=== PATIENT | female | born 1995 | race Caucasian/White ===

== ENCOUNTER 2023-05-15 09:51 | Outpatient (AMB) | payer OTHER, SELFPAY ==
[2023-05-15 11:04] VITALS: BP 102/60; PULSE 50; TEMP 36.6; O2SAT 96; BMI 20.2
--- NOTE | 2023-05-15 11:04 | MHC.OFFWIV ---
Intake Vital Signs 05/15/23 11:04 Height 5 ft 1 in Weight 48.534 kg BMI 20.2 BP 102/60 Blood Pressure Location Rt brachial Position Sitting Pulse 50 Pulse Source Pulse Oximeter Temp 97.8 F Temp Source Temporal Artery Scan Pulse Oximetry (%) 96 Oxygen Delivery Method Room Air Intake Visit Reasons: EST/chest congestion(lobby) Intake Note: pt is here for c/o chest congestion and ear pain Patient Tobacco Use Status: Never used Tobacco Allergies No Known Allergies [No Known Allergies*] Allergy (Verified 05/15/23 11:06) Do you need a note to return to daycare/school/sports/work: Yes HPI HPI Comments History of Present Illness Details 1114 27 year old female presents with congestion, fatigue, maliase and ear pain X 2 days. Girlfriend is COVID + at this time. No cp, sobm nausea, vomiting, headache, vision changes, dizziness, weakness PE- benign Likely viral, flu, influenza. No signs of OM/OE, ruptured tm, mastoiditis Plan- viral test Discussed antiviral tx w/ patient if + not interested at this time. Educated patient on diagnosis and treatment plan, answered all question, patient verbalizes understanding. At this time patient will be discharged home, advised to return with new or worsening symptoms. Educated on worrisome signs and symptoms and when to return. At this time I feel comfortable discharge home. [facility] Social History Patient Tobacco Use Status: Never used Tobacco Review of Systems Const Details: Constitutional : No Weight loss, No Fever, No Chills, No Fatigue, No Malaise ENT/Mouth : No sore throat, No Rhinorrhea Eyes: No Eye Pain, No Swelling, No Redness Cardiovascular : No Chest Pain, No SOB, No Dyspnea on Exertion, No Orthopnea, No Edema, No Palpitations Respiratory : No Cough, No Sputum, No Wheezing Gastrointestinal : No Nausea, No Vomiting, No Diarrhea, No Constipation, No abdominal Pain, No Hematochezia, No Melena Genitourinary : No Dysuria, No Urinary Frequency, No Hematuria, Musculoskeletal : No joint pain, No Myalgias, No Joint Swelling Skin : No Skin Lesions, No rash Neuro : No Weakness, No Numbness, No Dizziness, No Headache Psych : No Anxiety/Panic, No Depression All other systems reviewed and are negative All systems reviewed & are unremarkable except as noted in HPI and below Physical Exam Vital Signs: Last Vital Signs Temp 97.8 F 05/15/23 11:04 Pulse 50 05/15/23 11:04 BP 102/60 05/15/23 11:04 Pulse Ox 96 05/15/23 11:04 Oxygen Delivery Method Room Air 05/15/23 11:04 BMI result Body Mass Index 20.2 vss Appearance: Alert.? Oriented X3.? No acute distress.? Head: Normocephalic, atraumatic, no step-offs or deformities Eyes: Pupils equal, round and reactive to light.? Neck: Normal inspection.? Neck supple.? CVS: Normal heart rate and rhythm.? Pulses normal.? Respiratory: No respiratory distress.? Breath sounds normal.? Abdomen: Soft and nontender.? Skin: Skin warm and dry.? Normal skin color.? Normal skin turgor.? Extremities: No lower extremity edema.? No calf ttp. 5/5 strength to bilateral upper and lower extremities Neuro: Oriented X 3.? No motor deficit.? No sensory deficit. CN 2-12 intact Assessment & Plan Assessment & Plan (1) Viral illness: Code(s): B34.9 - Viral infection, unspecified Plan Take your medications as prescribed. If you were prescribed antibiotics today, it is important that you take your medication to their entirety, do not skip any doses, do not finish them early. Follow-up with your primary care provider this week. Return to the emergency department with new or worsening symptoms. Such as fevers, chills, chest pain, shortness of breath, nausea, vomiting, dizziness, headache, vision changes, lethargy In case of emergency call 911 Orders: Orders BinaxNOW Covid-19 Ag Today B34.9 - Viral infection, unspecified Coding Level of Care Code Est Pt Level 3 (81701) Diagnoses Viral illness B34.9
== END 2023-05-15 11:47 | disposition home or self-care (01) ==
PROVIDERS: Visit Provider Physician Assistant
DX: B34.9 Viral infection, unspecified (principal)
CPT/HCPCS: 99213

== ENCOUNTER 2023-05-15 11:19 | Outpatient (REF) | payer OTHER, SELFPAY ==
[2023-05-15 11:38] LABS: Binax Internal Control QC Valid; Binax Now Covid-19 Ag Positive (Negative); Binax Performed by: PAULP
== END 2023-05-15 11:20 | disposition home or self-care (01) ==
LOC: HO.HMGCLDS 11:19
PROVIDERS: Visit Provider Physician Assistant
DX: Z11.52 Encounter for screening for COVID-19 (principal)
CPT/HCPCS: 87811; C9803

== ENCOUNTER 2025-06-18 09:33 | Emergency (ER) | payer OTHER, SELFPAY ==
--- NOTE | ~2025-06-18 | CT_ITS ---
CLINICAL HISTORY: flank pain, hx of kidney stones CT abdomen and pelvis without IV contrast. COMPARISON: None provided. FINDINGS: Partially visualized lung bases are unremarkable. Normal gallbladder. Non-contrasted appearance of the liver, spleen, adrenal glands, and pancreas are unremarkable. Multiple nonobstructing right renal calculi measuring up to 4 mm. Mild right hydroureter. At the right UVJ there is a 3 mm ureteral calculus. Multiple nonobstructing left renal calculi measuring up to 3 mm. No left-sided hydronephrosis. No left hydroureter. No left ureteral calculus identified. Normal appendix. Mild colonic stool burden. No bowel obstruction. No mesenteric or retroperitoneal lymphadenopathy. Normal abdominal aorta. Normal appearance of the urinary bladder. No adnexal mass. Small amount of free fluid present within the posterior cul-de-sac. No acute fracture or suspicious bone lesion. IMPRESSION: 1. Right UVJ 3 mm calculus causes mild right hydroureter. 2. Additional nonobstructing renal calculi present bilaterally measuring up to 4 mm on the right. 3. Small amount of free fluid present within the posterior cul-de-sac, likely physiologic. This document has been electronically signed by: Tal Rosales MD on 06/18/2025 14:10:56
[2025-06-18 09:44] VITALS: BP 121/58; PULSE 68; RESP 16; TEMP 36.8; O2SAT 100; BMI 22.7
--- NOTE | 2025-06-18 10:03 | ED_ITS ---
HPI - General Adult General Chief complaint: Abdominal Pain Stated complaint: kidney stones Time Seen by Provider: 06/18/25 10:03 Source: patient Mode of arrival: ambulatory Limitations: no limitations History of Present Illness ED Provider: Chela Francisco PA-C HPI narrative: Patient is a 29 year old female with a history of kidney stones presenting to the emergency department today with right sided flank pain, right lower abdominal pain, and nausea. Patient states that starting today she began to have right sided kidney and abdominal pain with nausea but not vomiting. Patient states this feels similar to a previous kidney stone she has had. Patient denies any other complaints at this time. Onset (ago): hour(s) Relieving factors: none Exacerbating factors: none Associated symptoms: nausea/vomiting Treatments prior to arrival: none Related Data Previous Rx's ?Medication ?Instructions ?Recorded naproxen 500 mg tablet 500 mg PO BID 7 days #14 tab s 06/18/25 prednisone 10 mg tablet 10 mg PO DAILY 4 days #4 tab s 06/18/25 tamsulosin 0.4 mg capsule 0.4 mg PO DAILY #7 caps 05/30 07/23 Allergies Allergy/AdvReac Type Severity Reaction Status Date / Time No Known Allergies (No Known Allergy Verified 06/18/25 09:45 Allergies*) Review of Systems 2 Constitutional: Constitutional: Reports as per HPI Eyes: Eyes: Reports as per HPI ENT: Reports as per HPI Cardiovascular: Cardiovascular: Reports as per HPI Respiratory: Respiratory: Reports as per HPI Gastrointestinal: Gastrointestinal: Reports as per HPI Genitourinary: Genitourinary: Reports as per HPI Musculoskeletal: Musculoskeletal: Reports as per HPI Integumentary/Breasts: Skin/Breast: Reports as per HPI Neurologic: Reports as per HPI Psychiatric: Psychiatric: Reports as per HPI Endocrine: Endocrine: Reports as per HPI Hematologic/Lymphatic: Hematologic/Lymphatic: Reports as per HPI Allergic/Immunologic: Allergic/Immunologic: Reports as per HPI [facility] Past Medical History Attestation statement: The following information was validated with the patient. Source: old records reviewed and nursing notes reviewed Social History Social History Patient Tobacco Use Status: Never used Tobacco Smoked in Last 30 Days: No Use of substances other than those prescribed or required for medical reasons: No Advance Directives: No Advance Directives Information Provided: No Do you have a plan to hurt others: No Plan Patient : No Physical Exam ED Vital Signs: Vital Signs - 24 hr 06/18/25 09:44 06/18/25 11:28 06/18/25 14:08 Temperature 98.2 F 98.2 F 98.2 F Pulse Rate 68 73 73 Respiratory Rate 16 16 16 Blood Pressure 121/58 L 112/65 112/65 Pulse Oximetry 100 100 100 Oxygen Delivery Method Room Air Room Air Room Air BMI result Body Mass Index 22.7 Const General: cooperative, no acute distress, alert and awake Nutritional Appearance: well nourished Orientation/consciousness: patient oriented x3 HENMT Head: Yes normal to inspection and Yes atraumatic Ears: hearing grossly normal bilaterally and external ears normal General nose exam: Normal external nose present, no nasal discharge noted and no epistaxis Face and sinus: Yes normal facial exam, No abrasion and No laceration Mouth: Normal oral and palatal mucosa present, no drooling and no muffled voice Eyes General: appearance normal, both eyes and all related structures Periorbital: periorbital findings normal Eyelids: Yes eyelids normal Conjunctivae: conjunctivae normal Pupils: Equal, round and reactive pupils present EOM: EOMs intact bilaterally Neck Neck: Yes normal visual inspection and Yes full ROM Resp Effort & Inspection: normal respiratory effort and able to speak in complete sentences Neuro General: patient oriented x3, moves all extremities and CN's II-XI intact bilaterally Cranial nerves: Yes Equal, round and reactive pupils present Cognition (Neuro): normal cognition Extrem General: Yes normal to inspection, Yes full ROM and Yes capillary refill normal Psych Appearance: grossly normal Mental Status: mental status grossly normal Affect: normal affect Attitude: cooperative Thought process: Normal thought process present Thought content: Normal thought content present Insight: Good insight present (Psych) Medications Administered Discontinued Medications Generic Name Dose Route Start Last Admin Trade Name Freq PRN Reason Stop Dose Admin Sodium Chloride 1,000 mls @ 999 mls/hr 06/18/25 11:15 06/18/25 12:49 Ns IV 06/18/25 12:15 Infused .Q1H1M GALLO Infusion Ketorolac Tromethamine 15 mg 06/18/25 11:13 06/18/25 11:26 Ketorolac Tromethamine 15 Mg/Ml Vial IVPUSH 06/18/25 11:14 15 mg ONCE ONE Administration Ondansetron HCl 4 mg 06/18/25 11:13 06/18/25 11:26 Ondansetron Hcl 4 Mg/2 Ml Vial IVPUSH 06/18/25 11:14 4 mg ONCE ONE Administration Medical Decision Making Medical Decision Making [facility] Narrative: Patient is a 29 year old female with a history of kidney stones presenting to the emergency department today with right sided flank pain, right lower abdominal pain, and nausea. Patient's physical exam was as noted in the physical exam portion of this note. Patient's blood work was unremarkable. Patient's urine showed no acute process. Patient's CT abd/pelvis showed a right UVJ 3mm calculus with mild right hydroureter. Patient received IV fluids and Toradol which, upon re-evaluation, she stated it helped her symptoms significantly. I explained my physical exam findings as well as all test results to the patient. I answered all questions asked by the patient. Patient was able to tolerate PO intake while in the department - she was eating an outside brought large soup with rice. I stressed the importance of the patient taking her medication as directed (either prescribed or as the over the counter packaging recommends). I stressed the importance of the patient following up with her primary care provider and the urology team. I stressed the importance of the patient returning to the emergency department immediately if her symptoms were to worsen or if she were to develop any dizziness, shortness of breath, difficulty breathing, chest pain, blurry vision, loss of vision, nausea, vomiting, abdominal pain, fever, chills, back pain, or any other complaints. Patient verbalized agreement and understanding with this treatment plan and discharge. Differential Diagnosis Differential Diagnoses: The differential diagnosis associated with the presentation includes Kidney stone Admission/Observation Consideration of admission/observation: Escalation of care including admission/observation considered Patient would have been admitted to the hospital had her work up had any findings where hospital admission was appropriate and her clinical presentation warranted hospital admission. Lab Data [facility] Lab Attestation statement: I reviewed the patient's lab results. My interpretation of these results are in the MDM Rationale portion of this note. 06/18/25 10:00 06/18/25 10:00 Labs: Lab Results 06/18/25 Range/Units 10:00 WBC 6.3 (4.8-10.8) X10*3/uL RBC 4.34 (4.20-5.50) X10*6/uL Hgb 13.2 (12.0-16.0) g/dl Hct 40.2 (37.0-47.0) % MCV 92.6 (80.0-98.0) fL MCH 30.4 (27.0-33.0) pg MCHC 32.8 (31.0-35.0) g/dl RDW 12.1 (11.0-16.0) % Plt Count 212 (160-400) X10*3/uL MPV 12.1 (9.4-12.3) fL Immature Gran % (Auto) 0.5 H (0.0-0.4) % Neut % (Auto) 59.4 (45-73) % Lymph % (Auto) 22.9 (20-40) % [place] % (Auto) 8.9 (2-11) % Eos % (Auto) 7.3 H (0-4) % Baso % (Auto) 1.0 (0-2) % Lymph # (Auto) 1.4 (1.2-4.9) X10*3/uL [place] # (Auto) 0.6 (0.1-1.2) X10*3/uL Eos # (Auto) 0.5 H (0.0-0.4) X10*3/uL Baso # (Auto) 0.1 (0.0-0.2) X10*3/uL Abs Immat Gran (auto) 0.03 (0.00-0.03) X10*3/uL Absolute Neuts (auto) 3.7 (2.0-8.3) x10*3/uL Absolute Nucleated RBC 0.000 (0.0-0.012) X10*3/uL Nucleated RBC % (auto) 0.0 (0.0-0.2) /100WBC Sodium 136 (135-145) mmol/L Potassium 4.0 (3.3-5.1) mmol/L Chloride 109 H (96-108) mmol/L Carbon Dioxide 21 L (22-29) mmol/L Anion Gap 10 L (12-20) BUN 12 (9-16) mg/dL Creatinine 0.82 (0.5-1.4) mg/dL Estim Creat Clear Calc 77.7 Estimated GFR > 60 Random Glucose 97 (60-115) mg/dL Calcium 8.9 (8.4-10.2) mg/dL Total Bilirubin 0.4 (0.0-1.0) mg/dL AST 20 (5-31) U/L ALT 16 (0-31) U/L Alkaline Phosphatase 61 (39-117) U/L Total Protein 7.0 (6.5-8.0) g/dL Albumin 4.5 (3.5-5.0) g/dL Beta HCG, Quant < 2 mIU/mL Urine Color Yellow Urine Appearance Clear Urine pH 6.5 (5.0-9.0) Ur Specific [place] 1.010 (1.005-1.025) Urine Protein Negative (Neg-Trace) mg/dL Urine Glucose (UA) Negative (Negative) mg/dL Urine Ketones Negative (Negative) mg/dL Urine Blood Small (1+) H (Negative) Urine Nitrite Negative (Negative) Ur Leukocyte Esterase Negative (Negative) Urine RBC 0-2 (0-2) /HPF Urine WBC 0-5 (0-5) /HPF Ur Squamous Epith Cells 0-2 (0-2) /HPF Urine Bacteria None Seen (None Seen) Hyaline Casts 0-2 (0-2) /LPF Independent Interpretation I performed an independent interpretation of an: CT Scan Interpretation: My interpretation is in agreement with the radiologist's impression of this imaging study as written below. Report Number: [id number]: Total DLP = 341.00 mGy-cm Reason for Exam: flank pain, hx of kidney stones CLINICAL HISTORY: flank pain, hx of kidney stones CT abdomen and pelvis without IV contrast. COMPARISON: None provided. FINDINGS: Partially visualized lung bases are unremarkable. Normal gallbladder. Non-contrasted appearance of the liver, spleen, adrenal glands, and pancreas are unremarkable. Multiple nonobstructing right renal calculi measuring up to 4 mm. Mild right hydroureter. At the right UVJ there is a 3 mm ureteral calculus. Multiple nonobstructing left renal calculi measuring up to 3 mm. No left-sided hydronephrosis. No left hydroureter. No left ureteral calculus identified. Normal appendix. Mild colonic stool burden. No bowel obstruction. No mesenteric or retroperitoneal lymphadenopathy. Normal abdominal aorta. Normal appearance of the urinary bladder. No adnexal mass. Small amount of free fluid present within the posterior cul-de-sac. No acute fracture or suspicious bone lesion. IMPRESSION: 1. Right UVJ 3 mm calculus causes mild right hydroureter. 2. Additional nonobstructing renal calculi present bilaterally measuring up to 4 mm on the right. 3. Small amount of free fluid present within the posterior cul-de-sac, likely physiologic. This document has been electronically signed by: Tal Rosales MD on 06/18/2025 14:10:56 Dictated By: Tal Rosales MD Signed By: Electronically signed by Tal Rosales MD 06/18/25 1411 Radiology Impression Discussion of test interpretation with radiology: I have reviewed the radiologist's reading. Discharge Plan Discharge Clinical Impression: Calculus of kidney Patient Disposition: Home, Self-Care Instructions: Kidney Stones (ED) Additional Instructions: Your work up today showed evidence of a kidney stone that is small and will likely pass soon. IF you are prescribed home medications and/or you are taking over the counter medications at home - it is very important you continue to do so as prescribed / directed unless told otherwise by a healthcare provider. Follow up with your primary care provider and the urology team. Do your best to stay well hydrated and rest. Return to the emergency department immediately if your symptoms worsen or if you develop any numbness, tingling, dizziness, shortness of breath, difficulty breathing, chest pain, blurry vision, loss of vision, nausea, vomiting, abdominal pain, fever, chills, back pain, or any other complaints. L If you do not have a primary care provider - call any of the below numbers to establish and follow up with a primary care provider. [facility] Primary Care ([place]) [phone] [place] [address], [address] [facility] Primary Care ([address] [place]) [phone] [place] [address], [address] [facility], [address] [facility] Primary Care ([address] [place]) [phone] [place] [address], [address] [facility], [address] [facility] Primary Care ([place]) [phone] [place] [address], [address] [facility], [address] [facility] Family Medicine [phone] [address] [facility], [address] Please see the information below about our Patient Portal. If you are not yet enrolled in the [facility] Patient Portal, you will receive an enrollment email invitation following your visit to any [facility] setting. You may also self-enroll in the Patient Portal by visiting our website: [email or web address] The following information is required to access the Patient Portal: - Your [facility] Medical Record Number - Your personal home email address (must match what is in your electronic medical record, Registration staff can assist with this) - Name - Date of Capabilities of the Patient Portal: - Message some providers - View upcoming appointments - Access your health summary, medical history, and visit history - View current conditions and allergies - View procedure and lab results - View your medications, including guidelines, side effects, and precautions - Complete pre-appointment questionnaires requested by your provider - Ready summary reports of your office visits and procedures To access the Patient Portal Mobile Deanna, follow these directions: - Search [employer] in the [employer]anna Store or [facility] [facility] - Download the Deanna - Search for [facility] - Enter your login/password Prescriptions: New prednisone 10 mg tablet 10 mg PO DAILY 4 Days Qty: 4 0RF tamsulosin 0.4 mg capsule 0.4 mg PO DAILY Qty: 7 0RF naproxen 500 mg tablet 500 mg PO BID 7 Days Qty: 14 0RF Referrals: [facility] Urology Services [Provider Group, Urology] Referral Note: [facility] Urology will call you in 2 business days. If they do not call you within 2 business days, call the number provided. Stand Alone Forms: Work/School Release Interventions: ED Discharge Assessment Last Done: 06/18/25 14:08 Discharge Date/Time: 06/18/25 14:09 Print Language: Kazakh
[2025-06-18 10:05] LABS: MANUAL DIFF FLAG NO
--- OUTSIDE RECORDS SUMMARY | 2025-06-18 10:19 | XMS_ITS | Encounter Summary ---
Author Organization [employer] Address [address] [place] [address] Care Team Providers Care Residential Sales Rep Name Role Phone Unavailable Primary Care Provider Unavailabl e Encounter Details Date Type Department Care Team (Latest Contact Info) Description 04/25/2021 Abstract [facility] CONVERSIONS Dental, Provider, DDS Social History Tobacco Use Types Packs/Day Years Used Date Smoking Tobacco: Never Assessed Comments Unknown Sex and Gender Information Value Date Recorded Sex Assigned at Female 04/28/2022 10:32 AM EDT Legal Sex Female 10:32 AM EDT Gender Identity Female 04/28/2022 10:32 AM EDT Sexual Orientation Don't know 04/28/2022 10 :32 AM EDT documented as of this encounter Plan of Treatment Not on file documented as of this encounter Visit Diagnoses Not on filedocumented in this encounter
--- OUTSIDE RECORDS SUMMARY | 2025-06-18 10:19 | XMS_ITS | Clinical Summary ---
Author Organization [employer] Address [address] [facility] [address] [place] [address] Care Team Providers Care Straight Truck Driver Name Role Phone Unavailable Primary Care Provider Unavailabl e Social History Tobacco Use Types Packs/Day Years Used Date Smoking Tobacco: Never Assessed Comments Unknown Sex and Gender Information Value Date Recorded Sex Assigned at Female 04/28/2022 10:32 AM EDT Legal Sex Female 10:32 AM EDT Gender Identity Female 04/28/2022 10:32 AM EDT Sexual Orientation Don't know 04/28/2022 10 :32 AM EDT Plan of Treatment Health Maintenance Due Date Last Done Comments Depression Screening 1997 Disability Screening 1997 Alcohol/Substance Use Screening 2009 Tobacco Screening 2009 Family Planning (PISQ) 2012 HPV Vaccines (1 - 3-dose series) 2012 DTaP/Tdap/Td Vaccines (1 - Tdap) 2016 Hepatitis B Vaccines (1 of 3 - 19+ 3-dose series) 2016 Pap Smear 2018 COVID-19 Vaccine (1 - 2024-2 6 season) 2025 Influenza Vaccine (#1) 2025 Zoster Vaccines (1 of 2) 11/24/2047 RSV Patients and Pa tients Aged 60 years or older (1 - 1-dose 75+ series) 2072 HIB Vaccines Aged Out No longer eligi ble based on patient's age to complete this topic Hepatitis A Vaccines Aged Out No long er eligible based on patient's age to complete this topic IPV Vaccines Aged Out No longer eligi ble based on patient's age to complete this topic Meningococcal B Vaccine Aged Out No l onger eligible based on patient's age to complete this topic Meningococcal Vaccine Aged Out No wiley gen eligible based on patient's age to complete this topic Pneumococcal Vaccine: Pediat rics (0 to 5 Years) and At-Risk Patients (6 to 49) Years Aged Out No longer eligible b ased on patient's age to complete this topic RSV under 20 months Aged Out No longe r eligible based on patient's age to complete this topic Rotavirus Vaccines Aged Out No longer eligible based on patient's age to complete this topic
--- OUTSIDE RECORDS SUMMARY | 2025-06-18 10:19 | XMS_ITS | Encounter Summary ---
Author Organization [employer] Address [address] [place] [address] Care Team Providers Care Glove Printer Name Role Phone Unavailable Primary Care Provider Unavailabl e Encounter Details Date Type Department Care Team (Latest Contact Info) Description 08/10/2019 Abstract C CONVERSIONS Dental, Provider, DDS Social History Tobacco [...]
[2025-06-18 10:30] LABS: Appearance Urine Clear; Glucose Urine UA Negative (Negative); Hematocrit 40.2 % (37.0-47.0); Hemoglobin 13.2 g/dl (12.0-16.0); Imm Gran Abs Auto 0.03 X10*3/uL (0.00-0.03); Imm Gran Pct Auto 0.5 % (0.0-0.4); Lymphocytes Absolute Auto 1.4 X10*3/uL (1.2-4.9); Mean Corpuscular HGB Conc 32.8 g/dl (31.0-35.0); Mean Corpuscular Hemoglobin 30.4 pg (27.0-33.0); Mean Corpuscular Volume 92.6 fL (80.0-98.0); NRBC Abs Auto 0.000 X10*3/uL (0.0-0.012); NRBC Pct Auto 0.0 /100WBC (0.0-0.2); PH 6.5 (5.0-9.0); Platelet Count 212 X10*3/uL (160-400); Red Blood Count 4.34 X10*6/uL (4.20-5.50); Specific Gravity - Urine 1.010 (1.005-1.025); UMIC TRIGGER UACC YES; White Blood Count 6.3 X10*3/uL (4.8-10.8)
[2025-06-18 10:47] LABS: Alanine Aminotransferase 16 U/L (0-31); Albumin Level 4.5 g/dL (3.5-5.0); Alkaline Phosphatase 61 U/L (39-117); Anion Gap 10 (12-20); Aspartate Amino Transferase 20 U/L (5-31); Blood Urea Nitrogen 12 mg/dL (9-16); Calcium 8.9 mg/dL (8.4-10.2); Carbon Dioxide 21 mmol/L (22-29); Chloride 109 mmol/L (96-108); Creatinine Clr Calc Pharmacy 77.7; Estimated Glomerular Filt Rate > 60; Potassium 4.0 mmol/L (3.3-5.1); Sodium 136 mmol/L (135-145); Total Protein 7.0 g/dL (6.5-8.0)
[2025-06-18 11:28] VITALS: BP 112/65; PULSE 73; RESP 16; TEMP 36.8; O2SAT 100
[2025-06-18 14:08] VITALS: BP 112/65; PULSE 73; RESP 16; TEMP 36.8; O2SAT 100
== END 2025-06-18 14:09 | disposition home or self-care (01) ==
PROVIDERS: Physician Assistant Medical; Emergency Provider Emergency Medicine Emergency Medical Services
DX: N13.2 Hydronephrosis with renal and ureteral calculous obstruction (principal); R10.A1 Flank pain, right side; Z87.442 Personal history of urinary calculi
CPT/HCPCS: 36415; 74176; 80053; 81001; 84702; 85025; 96361; 96374; 96375; 99284; 99285; J1885; J2405

== ENCOUNTER → 2025-06-18 10:04 | Outpatient (BNV) | payer OTHER, SELFPAY | PROVIDERS: Emergency Provider Emergency Medicine Emergency Medical Services; Visit Provider Radiology Diagnostic Radiology | DX: N20.2 Calculus of kidney with calculus of ureter (principal); N13.4 Hydroureter | CPT/HCPCS: 74176 ==